=== PATIENT | male | born 1985 | race African-American/Black ===

== ENCOUNTER 2017-08-02 12:16 | Emergency (ER) | payer OTHER, MEDICAID ==
[~2017-08-02] VITALS: Ht 175.3 cm; Wt 90.0 kg
[~2017-08-02 12:16] MED LIST: NAPR-571 PO
[2017-08-02 12:18] VITALS: BP 135/90; PULSE 79; RESP 13; TEMP 99.1; O2SAT 99
[2017-08-02] MEDS ORDERED: IBUP1TAB7 PO (13:02)
[2017-08-02] MEDS ORDERED: ROBA500T PO (13:02)
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
[2017-08-02] MEDS ORDERED: METHOCARBAMOL 500 MG TAB PO ONE (13:15)
[2017-08-02] MEDS ORDERED: IBUPROFEN 800 MG TAB PO ONE (13:15)
== END 2017-08-02 13:51 | disposition home or self-care (01) ==
LOC: NEPK 12:16
DX: S50.11XA Contusion of right forearm, initial encounter (principal); S70.12XA Contusion of left thigh, initial encounter; F17.290 Nicotine dependence, other tobacco product, uncomplicated; V49.40XA Driver injured in collision with unspecified motor vehicles in traffic accident, initial encounter
CPT/HCPCS: 99283